=== PATIENT | female | born 1955 | race Native Hawaiian/Other Pacific Islander ===

== ENCOUNTER 2016-12-14 13:16 | Outpatient (CLI) | payer BC | END 2016-12-14 19:13 | disposition home or self-care (01) | LOC: MAMMO 13:16 | DX: Z12.31 Encounter for screening mammogram for malignant neoplasm of breast (principal) ==

== ENCOUNTER 2018-01-20 10:11 | Outpatient (CLI) | payer OTHER | END 2018-01-20 21:13 | disposition home or self-care (01) | LOC: MAMMO 10:11 | DX: Z12.31 Encounter for screening mammogram for malignant neoplasm of breast (principal) ==

== ENCOUNTER 2019-02-01 12:40 | Outpatient (CLI) | payer OTHER | END 2019-02-01 19:56 | disposition home or self-care (01) | LOC: MAMMO 12:40 | DX: Z12.31 Encounter for screening mammogram for malignant neoplasm of breast (principal) ==

== ENCOUNTER 2020-03-20 10:37 | Outpatient (CLI) | payer OTHER, MEDICARE | END 2020-03-20 19:04 | disposition home or self-care (01) | LOC: MAMMO 10:37 | PROVIDERS: ATTEND Specialist | DX: Z12.31 Encounter for screening mammogram for malignant neoplasm of breast (principal) ==